=== PATIENT | female | born 1950 | race Caucasian/White ===

== ENCOUNTER 2017-06-23 07:49 | Emergency (ER) | payer MEDICAID ==
[2017-06-23 07:58] VITALS: BMI 27.2
[2017-06-23 08:05] VITALS: TEMP 97.6
--- NOTE | 2017-06-23 08:19 | C.PDOC ---
History Of Present Illness 67 y/o F c PMHx HTN, osteoporosis, gastritis, cholecystectomy, hernia repair p/ w L arm paresthesias x 12 days. Patient states that she has been having a tingling sensation around the ulnar aspect of her L hand, which radiates up towards the shoulder. She also feels the sensation radiate to the L side of her face. She states she took Aspirin yesterday and ibuprofen before that. She notes that she has been having nausea and discomfort in the epigastric area as well and states her Protonix is not working. She denies chest pain, vomiting, vision change, weakness, slurred speech, injury, trauma, fever. Time Seen by Provider: 06/23/17 07:57 Chief Complaint (Nursing): Upper Extremity Problem/Injury Past Medical History Vital Signs: Last Vital Signs Temp 97.6 F 06/23/17 07:58 Pulse 73 06/23/17 07:58 Resp 20 06/23/17 07:58 BP 123/84 06/23/17 07:58 Pulse Ox 98 06/23/17 08:34 - Medical History PMH: Gall Bladder Disease, HTN Surgical History: Cholecystectomy, Hernia Repair (Abdominal Hernia) Family History: States: No Known Family Hx - Social History Hx Alcohol Use: No Hx Substance Use: No - Immunization History Hx Tetanus Toxoid Vaccination: No Hx Influenza Vaccination: No Hx Pneumococcal Vaccination: No Review Of Systems Except As Marked, All Systems Reviewed And Found Negative. Constitutional: Negative for: Fever Cardiovascular: Negative for: Chest Pain Physical Exam - Physical Exam Additional Physical Exam Comments: Gen: NAD Head: NC/AT Eyes: PERRL, EOMI ENT: No pharyngeal erythema or exudates Neck: L paraspinal tenderness. FROM, no nuchal rigidity. CV: S1S2, no murmur. Radial pulsesl 2+ bilaterally Lungs: CTA bilaterally Abdomen: Soft, no tenderness or guarding. Extremities: FROM x 4. No swelling or tenderness. Neuro: Patient reports subjective paresthesia on palpation on ulnar aspect of 5th L digit. Reports normal sensation to light touch in other digits and arm. CN II to XII intact. Sensation to light touch equal bilaterally in face. Motor 5 /5 x 4. Gait normal. ED Course And Treatment - Laboratory Results Result Diagrams: 06/23/17 08:43 06/23/17 08:43 O2 Sat by Pulse Oximetry: 98 Medical Decision Making Medical Decision Making: Impression: 67 y/o F c PMHx HTN, osteoporosis, gastritis p/w L arm/L face paresthesias with L paraspinal tenderness, consistent with a cervical radiculopathy. Patient was taking NSAIDs for these symptoms and is having nausea. Plan: Will treat with Pepcid/Toradol. Will exclude ACS with 1 set of cardiac enzymes in this patient with symptoms for 12 days. EKG NSR 72 bpm, no ST/T wave changes. CXR IMPRESSION: No focal consolidation, significant pleural effusion, or definite pneumothorax identified. Labs unremarkable. Discharged home, f/u PMD, return to ED for chest pain, dyspnea, weakness, worsening pain, or any other problem. Disposition - Disposition Disposition: HOME/ ROUTINE Disposition Time: 09:26 Condition: STABLE Prescriptions: Famotidine/Ca Carb/Mag Hydrox [Pepcid Complete Tablet Chew] 1 each PO BID #28 tab.chew Ibuprofen [Motrin] 1 tab PO Q6 #30 tab Instructions: Cervical Radiculopathy (ED) Forms: [employer] ([place]uan), Gen Discharge Inst Lat[place]ian - Clinical Impression Clinical Impression: Cervical radiculopathy
--- NOTE | 2017-06-23 08:50 | RAD ---
HISTORY: L arm numbness, nausea COMPARISON: None available. TECHNIQUE: Chest PA and lateral FINDINGS: Examination limited by habitus. LUNGS: No focal consolidation. Please note that chest x-ray has limited sensitivity for the detection of pulmonary masses. PLEURA: No significant pleural effusion identified. No definite pneumothorax . CARDIOVASCULAR: Heart size appears within normal limits. Tortuous aorta. OSSEOUS STRUCTURES: Degenerative changes of the spine. VISUALIZED UPPER ABDOMEN: Right upper quadrant surgical clips. OTHER FINDINGS: None. IMPRESSION: No focal consolidation, significant pleural effusion, or definite pneumothorax identified.
[2017-06-23 08:52] LABS: BASO % 0.6 % (0.0-2.0); EOS # 0.2 K/uL (0.0-0.7); EOS % 3.3 % (0.0-4.0); HEMATOCRIT 41.5 % (34.0-47.0); LYMPH # 1.5 K/uL (1.0-4.3); LYMPH % 32.8 % (20.0-40.0); MEAN CELL VOLUME 88.9 fL (81.0-99.0); MEAN CORPUSCULAR HEMOGLOBIN 30.4 pg (27.0-31.0); MEAN CORPUSCULAR HGB CONC 34.3 g/dL (33.0-37.0); MEAN PLATELET VOLUME 8.5 fL (7.2-11.7); MONO # 0.3 K/uL (0.0-0.8); MONO % 7.6 % (0.0-10.0); NRBC % 0.1 % (0.0-2.0); RED CELL DISTRIBUTION WIDTH 13.2 % (11.5-14.5); WHITE BLOOD COUNT 4.6 K/uL (4.8-10.8)
[2017-06-23 09:08] LABS: ALKALINE PHOSPHATASE 79 U/L (38-126); ALT/SGPT 42 U/L (9-52); AST/SGOT 23 U/L (14-36); BILIRUBIN,TOTAL 0.4 mg/dL (0.2-1.3); BLOOD UREA NITROGEN 16 mg/dL (7-17); CALCIUM 8.9 mg/dl (8.6-10.4); CARBON DIOXIDE 29 mmol/L (22-30); CHLORIDE 98 mmol/L (98-107); GFR AFRICAN-AMERICAN > 60; GLUCOSE,RANDOM 99 mg/dL (65-105); POTASSIUM 3.5 mmol/L (3.6-5.2); SODIUM 135 mmol/L (132-148); TOTAL PROTEIN 8.3 g/dL (6.3-8.3)
[2017-06-23 09:21] LABS: ALB/GLOB RATIO 1.1 (1.0-2.1)
[2017-06-23 09:44] VITALS: BP 125/85; PULSE 70; RESP 18; O2SAT 100
--- NOTE | 2017-06-24 22:28 | CARD ---
APPROVED REPORT EKG Measurement Heart [id number] <Conclusion> Normal sinus rhythm Normal ECG
== END 2017-06-23 09:44 | disposition home or self-care (01) ==
LOC: C.ER 07:49
DX: M54.12 Radiculopathy, cervical region (principal); I10 Essential (primary) hypertension; Z90.49 Acquired absence of other specified parts of digestive tract
CPT/HCPCS: 71020; 80053; 82550; 82553; 83690; 84484; 85025; 93005; 96374; 96375; 99285; J1885